=== PATIENT | male | born 1945 | race Caucasian/White ===

== ENCOUNTER → 2018-12-29 | Outpatient (CLI) | payer MEDICARE, OTHER ==
[~2018-12-29] MED LIST: ARICEPT5 MG PO; CYMBALTA30 MG PO; DOXAZOSIN MESYLA2 MG PO; GALANTAMINE PO; LEVAQUIN500 MG PO; LORATADINE10 MG PO; MONTELUKAST SOD10 MG PO; MUCINEX D TABL1 EAC1 PO; MYRBETRIQ50 MG PO; NAMENDA10 MG PO; ONDANSETRON PO; TYLENOL WITH C1 EACH PO; VITAMIN B-121000 MCG PO; Z.0.LOSARTAN POTASS2 PO; Z.0.OMEPRAZOLE20 MG PO; Z.0.SIMVASTATIN40 MG PO; Z.0.VITAMIN D3 1,01 PO; Z.0.ZOLPIDEM TART12. PO; [UNRECOGNIZED DRUG - OTHER]
--- NOTE | 2018-12-29 14:34 | Diagnostic Imaging Report ---
EXAM: Unilateral left lower leg soft tissue ultrasound INDICATION: ^[id number] ^1141 ^TRAUMATIC HEMATOMA OF LEFT LOWER LEG COMPARISON: None TECHNIQUE: Stein scale, color Doppler of the unilateral left lower extremity soft tissues was performed. FINDINGS: Sonographic evaluation of the left lower leg soft tissues in the area of palpable abnormality demonstrates an elongated complex fluid collection without internal vascularity consistent with hematoma. IMPRESSION: Left lower leg hematoma in the area of palpable abnormality. Signed by: Mohamud Diaz MD on 12/29/2018 2:30 PM
== END ==
LOC: US 11:02
PROVIDERS: ATTEND Family Medicine
DX: S80.12XA Contusion of left lower leg, initial encounter (principal); M79.89 Other specified soft tissue disorders; F03.90 Unspecified dementia, unspecified severity, without behavioral disturbance, psychotic disturbance, mood disturbance, and anxiety
CPT/HCPCS: 76882

== ENCOUNTER 2019-03-10 08:58 | Inpatient (IN) | payer OTHER ==
[2019-03-08 16:32] LABS: BASOPHILS % 0.5 % (0.0-1.0); EOSINOPHILS # (AUTO) 0.1 (0.0-0.4); EOSINOPHILS % 1.2 % (0.0-6.0); HEMATOCRIT 39.7 % (38.2-49.6); HEMOGLOBIN 12.9 g/dL (14.0-18.0); LYMPHOCYTES # (AUTO) 1.7 (1.0-3.2); LYMPHOCYTES % 29.9 % (18.0-39.1); MEAN CORPUSCULAR HEMOGLOBIN 29.9 pg (28-32); MEAN CORPUSCULAR HGB CONC 32.5 g/dL (31-35); MEAN CORPUSCULAR VOLUME 91.9 fL (81-99); MONOCYTES # (AUTO) 0.4 (0.2-0.8); MONOCYTES % 6.9 % (4.4-11.3); NEUTROPHILS # (AUTO) 3.5 (2.1-6.9); NEUTROPHILS % 61.2 % (38.7-80.0); PLATELET COUNT 198 x10e3/uL (140-360); RED BLOOD COUNT 4.32 x10e6/uL (4.3-5.7); RED CELL DISTRIBUTION WIDTH 12.5 % (11.7-14.4)
--- NOTE | 2019-03-08 17:07 | Diagnostic Imaging Report ---
EXAMINATION: CHEST 2 VIEWS INDICATION: Pre-operative COMPARISON: None FINDINGS: LINES/TUBES:None LUNGS:The lungs are well-inflated. No focal consolidation or pulmonary edema. PLEURA:No pleural effusion or pneumothorax. MEDIASTINUM:The cardiomediastinal silhouette appears normal in size and shape. BONES/SOFT TISSUES:No acute osseous injury. Degenerative changes of the visualized spine. ABDOMEN:No free air under the diaphragm. IMPRESSION: No focal pneumonia or pulmonary edema. Signed by: Mohamud Diaz MD on 03/08/2019 5:04 PM
[~2019-03-10] VITALS: Ht 182.9 cm; Wt 114.3 kg
[~2019-03-10 08:58] MED LIST changes: +ACETAMINOPHEN 1000 MG/100 ML 100 ML IV ONE; -LEVAQUIN500 MG PO; -TYLENOL WITH C1 EACH PO
--- OUTSIDE RECORDS SUMMARY | 2019-03-10 09:06 | XMS REPORT | Clinical Summary ---
Author Author [facility] Organization [facility] Address Unknown Phone Unavailable Care Team Providers Care Wellness Program Coordinator Name Role Phone Tato Albarran MD PCP Allergies No Known Allergies Medications End Date Status Medication Sig Dispensed Refills Start Date Active tamsulosin (FLOMAX) 0.4 Take 0.4 mg 0 mg capsule,extended by mouth release 24hr daily. Active simvastatin (ZOCOR) 40 MG Take 40 mg by 0 tablet mouth nightly. Active mirtazapine (REMERON) 15 Take 15 mg by 0 MG tablet mouth nightly. Active losartan (COZAAR) 25 MG TK 1 T PO QD 1 tablet 7 Active loratadine (CLARITIN) 10 Take 10 mg by 0 mg tablet mouth daily. Active Problems Problem Noted Date Obstructive sleep apnea 03/13/2017 Hearing loss 03/13/2017 Mixed hearing loss, bilateral 03/13/2017 Encounters Care Team Description Date Type Specialty Dc Renteria MD Normal pressure hydrocephalus (Primary Dx) 02/26/2019 Transcribe Access Orders Dc Renteria MD Subcortical infarction (HCC) (Primary Dx) 12/08/2018 Transcribe Access Orders after 03/09/2018 Social History Date Tobacco Use Types Packs/Day Years Used Never Smoker Drinks/Week oz/Week Comments Alcohol Use No Sex Assigned at Date Recorded Not on file Industry Job Start Date Occupation Not on file Not on file Not on file Travel End Travel History Travel Start No recent travel history available. 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
--- OUTSIDE RECORDS SUMMARY | 2019-03-10 09:06 | XMS REPORT ---
Author Author [facility] Address Unknown Phone Unavailable Care Team Providers Care Oncology Physician Assistant Name Role Phone TONNY WEN Unavailable Unavailable BERNARD BROOKS Unavailable Unavailable Problems This patient has no known problems. Allergies, Adverse Reactions, Alerts This patient has no known allergies or adverse reactions. Medications This patient has no known medications. Results Test Description Test Time Test Comments Text Results Atomic Results Result Comments CHEST 2 VIEWS 2019-03-08 17:03:00 [place] [address] Patient Name: AP DUMONT MR #: [id number] : 1945 Age/Sex: 74/M Req #: [id number] Adm Physician: Ordered by: TONNY WEN MD Report #: [id number] Location: OR Room/Bed: Procedure: [id number] DX/CHEST 2 VIEWS Exam Date: 03/08/19 Exam Time: 1643 REPORT STATUS: Signed EXAMINATION: CHEST 2 VIEWS INDICATION: Pre-operative COMPARISON: None FINDINGS: LINES/TUBES:None LUNGS:The lungs are well-inflated. No focal consolidation or pulmonary edema. PLEURA:No pleural effusion or pneumothorax. MEDIASTINUM:The cardiomediastinal silhouette appears normal in size and shape. BONES/SOFT TISSUES:No acute osseous injury. Degenerative changes of the visualized spine. ABDOMEN:No free air under the diaphragm. IMPRESSION: No focal pneumonia or pulmonary edema. Signed by: Andrés Oates MD on 03/08/2019 5:04 PM Dictated By: ANDRÉS OATES MD 03 Transcribed By: YANG on 03/08/191703 COPY TO: TONNY WEN MD US EXTREMITY DOUGLAS NON-VAS 2018-12-29 14:28:00 [place] [address] Patient Name: AP DUMONT MR #: [id number] : 1945 Age/Sex: 73/M Req #: [id number] Adm Physician: Ordered by: BERNARD BROOKS DO Report #: [id number] Location: Room/Bed: Procedure: [id number] US/US EXTREMITY DOUGLAS NON-VAS Exam Date: 12/29/18 Exam Time: 1141 REPORT STATUS: Signed EXAM: Unilateral left lower leg soft tissue ultrasound INDICATION: [id number] TRAUMATIC HEMATOMA OF LEFT LOWER LEG COMPARISON: None TECHNIQUE: Stein scale, color Doppler of the unilateral left lower extremity soft tissues was performed. FINDINGS: Sonographic evaluation of the left lower leg soft tissues in the area of palpable abnormality demonstrates an elongated complex fluid collection without internal vascularity consistent with hematoma. IMPRESSION: Left lower leg hematoma in the area of palpable abnormality. Signed by: Andrés Oates MD on 12/29/2018 2:30 PM Dictated By: ANDRÉS OATES MD 29 Transcribed By: YANG on 12/29/181429 COPY TO: BERNARD BROOKS DO
[2019-03-10] MEDS ORDERED: CEFTRIAXONE SOD 1 GM/NS 50 ML 50 ML IV ONE (09:15)
[2019-03-10] MEDS ORDERED: GENTAMICIN 80MG/NS 100 ML 200 ML IV ONE (09:15)
[2019-03-10] MEDS ORDERED: PROPOFOL IV EMULSION 10 MG/ML 20 ML VIAL ONE (11:01)
[2019-03-10] MEDS ORDERED: SEVOFLURANE INHAL SOLN 250 ML PEN BTL ONE (11:01)
[2019-03-10] MEDS ORDERED: ONDANSETRON HCL INJ 2MG/ML 2ML 2 MG/ML VIAL ONE (11:01)
[2019-03-10] MEDS ORDERED: LIDOCAINE HCL 2% LOCAL INJ 5 ML SDV VIAL INJ ONE (11:01)
[2019-03-10] MEDS ORDERED: ROCURONIUM BROMIDE 10 MG/ML 5ML VIAL ONE (11:01)
[2019-03-10] MEDS ORDERED: DEXAMETHASONE SOD PHOS INJ 4 MG/ML VIAL ONE (11:01)
[2019-03-10] MEDS ORDERED: B&O 60MG R/S 60 MG SUPP PR ONE (11:41)
[2019-03-10] MEDS ORDERED: IOPAMIDOL 610MG/1ML 300 MG/ML VIAL IV ONE (11:42)
[2019-03-10] MEDS ORDERED: ACETAMINOPHEN/CODEINE 300MG - 30MG TAB PO PRN (13:00)
[2019-03-10] MEDS ORDERED: DIPHENHYDRAMINE HCL 25 MG CAP PO PRN (13:00)
[2019-03-10] MEDS ORDERED: ONDANSETRON HCL INJ 2MG/ML 2ML 2 MG/ML VIAL IV PRN (13:00)
[2019-03-10] MEDS ORDERED: B&O 60MG R/S 60 MG SUPP PR PRN (13:00)
--- OUTSIDE RECORDS SUMMARY | 2019-03-10 13:27 | XMS REPORT | Clinical Summary ---
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
[2019-03-10 14:15] LABS: BASOPHILS % 0.5 % (0.0-1.0); EOSINOPHILS # (AUTO) 0.1 (0.0-0.4); EOSINOPHILS % 1.6 % (0.0-6.0); HEMATOCRIT 38.2 % (38.2-49.6); HEMOGLOBIN 12.2 g/dL (14.0-18.0); LYMPHOCYTES # (AUTO) 1.6 (1.0-3.2); LYMPHOCYTES % 27.9 % (18.0-39.1); MEAN CORPUSCULAR HEMOGLOBIN 29.8 pg (28-32); MEAN CORPUSCULAR HGB CONC 31.9 g/dL (31-35); MEAN CORPUSCULAR VOLUME 93.2 fL (81-99); MONOCYTES # (AUTO) 0.4 (0.2-0.8); NEUTROPHILS # (AUTO) 3.6 (2.1-6.9); NEUTROPHILS % 62.6 % (38.7-80.0); PLATELET COUNT 167 x10e3/uL (140-360); RED CELL DISTRIBUTION WIDTH 12.7 % (11.7-14.4)
[2019-03-10 14:30] LABS: ANION GAP 12.4 mmol/L (8-16); BLOOD UREA NITROGEN 13 mg/dL (7-26); BUN/CREATININE RATIO 14 (6-25); CALCIUM 8.9 mg/dL (8.4-10.2); CARBON DIOXIDE 26 mmol/L (22-29); CHLORIDE 107 mmol/L (98-107); CREATININE, SERUM 0.94 mg/dL (0.72-1.25); EST GLOMERULAR FILTRATION RATE > 60 ML/MIN (60-); GLUCOSE 106 mg/dL (74-118); POTASSIUM 4.4 mmol/L (3.5-5.1); SODIUM 141 mmol/L (136-145)
[2019-03-10] MEDS ORDERED: FENTANYL CITRATE/PF 100MCG/2 ML INJ ONE ×2 (14:31→14:45)
[2019-03-10] MEDS: PHENAZOPYRIDINE HCL 100 MG TAB PO SCH ×2 (17:43→17:45)
[2019-03-10] MEDS: D5.45%NS/KCL 20MEQ 1,000 ML IV SCH ×2 (17:43→20:59)
[2019-03-10] MEDS: CEFTRIAXONE SOD 1 GM/NS 50 ML 50 ML IV SCH (17:43)
[2019-03-10] MEDS: DOCUSATE SODIUM 100 MG CAP PO SCH (17:43)
[2019-03-10 18:00] VITALS: BP 132/76
[2019-03-10 18:42] VITALS: BP 145/83
--- NOTE | 2019-03-10 19:28 | NUR ---
WALKING ROUNDS PERFORMED, RECEIVED PT LAYING SEMI FOWLERS IN BED, AAOX3, RR EVEN AND NON-LABORED, ON ROOM AIR. NO S/SX OF DISTRESS NOTED. PT RECEIVING CBI AT THIS TIME. LEFT PT LAYING SEMI FOWLERS IN BED, BED IN LOW LOCKED POSITION, SIDE RAILS UPX2, CALL LIGHT AND PHONE WITHIN REACH.
[2019-03-10 20:00] VITALS: BP 149/79
[2019-03-10 21:02] VITALS: BP 149/79
--- NOTE | 2019-03-10 21:44 | NUR ---
PAGE PLACED FOR MD Oli AMBROSE CONCERNING HOME MEDICATIONS. WAITING FOR CALLBACK.
[2019-03-11] VITALS (8 sets, daily range): BP systolic 96–134; BP diastolic 59–70
--- NOTE | 2019-03-11 02:01 | NUR ---
PT URINE COLORED CHANGED FROM HEMATURIA PEREA TO BRIGHT ORANGE. WILL CONTINUE TO MONITOR.
[2019-03-11] MEDS: D5.45%NS/KCL 20MEQ 1,000 ML IV SCH ×3 (02:04→20:59)
[2019-03-11 06:17] LABS: BASOPHILS % 0.3 % (0.0-1.0); EOSINOPHILS # (AUTO) 0.1 (0.0-0.4); HEMOGLOBIN 12.8 g/dL (14.0-18.0); LYMPHOCYTES # (AUTO) 1.5 (1.0-3.2); LYMPHOCYTES % 16.5 % (18.0-39.1); MEAN CORPUSCULAR HEMOGLOBIN 30.1 pg (28-32); MEAN CORPUSCULAR HGB CONC 32.8 g/dL (31-35); MEAN CORPUSCULAR VOLUME 91.8 fL (81-99); MONOCYTES # (AUTO) 0.7 (0.2-0.8); MONOCYTES % 7.9 % (4.4-11.3); NEUTROPHILS # (AUTO) 6.8 (2.1-6.9); NEUTROPHILS % 73.9 % (38.7-80.0); PLATELET COUNT 190 x10e3/uL (140-360); RED BLOOD COUNT 4.25 x10e6/uL (4.3-5.7); RED CELL DISTRIBUTION WIDTH 12.7 % (11.7-14.4)
[2019-03-11 06:48] LABS: ANION GAP 11.5 mmol/L (8-16); BLOOD UREA NITROGEN 10 mg/dL (7-26); BUN/CREATININE RATIO 10 (6-25); CALCIUM 8.7 mg/dL (8.4-10.2); CARBON DIOXIDE 26 mmol/L (22-29); CHLORIDE 103 mmol/L (98-107); CREATININE, SERUM 0.96 mg/dL (0.72-1.25); EST GLOMERULAR FILTRATION RATE > 60 ML/MIN (60-); GLUCOSE 125 mg/dL (74-118); POTASSIUM 4.5 mmol/L (3.5-5.1); SODIUM 136 mmol/L (136-145)
[2019-03-11] MEDS: DOCUSATE SODIUM 100 MG CAP PO SCH ×2 (09:48→17:14)
[2019-03-11] MEDS: PHENAZOPYRIDINE HCL 100 MG TAB PO SCH ×3 (09:48→17:14)
[2019-03-11] MEDS: CEFTRIAXONE SOD 1 GM/NS 50 ML 50 ML IV SCH (17:14)
--- NOTE | 2019-03-11 19:00 | NUR ---
WALKING ROUNDS PERFORMED, RECEIVED PT LAYING SEMI FOWLERS IN BED, AAOX3, RR EVEN AND NON-LABORED, ON ROOM AIR. NO S/SX OF DISTRESS NOTED. PT RECEIVING CBI, BRIGHT ORANGE URINE NOTED TO MAHAJAN BEDSIDE BAG. LEFT PT LAYING SEMI FOWLERS IN BED, BED IN LOW LOCKED POSITION, SIDE RAILS UPX2, CALL LIGHT AND PHONE WITHIN REACH.
[2019-03-11] MEDS ORDERED: MONTELUKAST SODIUM 10 MG TAB PO SCH (21:00)
[2019-03-11] MEDS ORDERED: DOXAZOSIN MESYLATE 2 MG TAB PO SCH (21:00)
[2019-03-11] MEDS ORDERED: SIMVASTATIN 40 MG TAB PO SCH (21:00)
[2019-03-11] MEDS ORDERED: DONEPEZIL HCL 5 MG TAB PO SCH (21:00)
[2019-03-11] MEDS: MEMANTINE 10 MG TAB PO SCH (21:28)
[2019-03-12] MEDS: D5.45%NS/KCL 20MEQ 1,000 ML IV SCH (02:25)
[2019-03-12 06:40] LABS: BASOPHILS % 0.3 % (0.0-1.0); EOSINOPHILS # (AUTO) 0.1 (0.0-0.4); EOSINOPHILS % 0.9 % (0.0-6.0); HEMATOCRIT 39.8 % (38.2-49.6); LYMPHOCYTES # (AUTO) 1.6 (1.0-3.2); LYMPHOCYTES % 20.3 % (18.0-39.1); MEAN CORPUSCULAR HGB CONC 32.7 g/dL (31-35); MEAN CORPUSCULAR VOLUME 91.9 fL (81-99); MONOCYTES # (AUTO) 0.8 (0.2-0.8); MONOCYTES % 10.3 % (4.4-11.3); NEUTROPHILS # (AUTO) 5.3 (2.1-6.9); NEUTROPHILS % 67.8 % (38.7-80.0); PLATELET COUNT 184 x10e3/uL (140-360); RED BLOOD COUNT 4.33 x10e6/uL (4.3-5.7); RED CELL DISTRIBUTION WIDTH 12.7 % (11.7-14.4)
[2019-03-12 07:02] LABS: ANION GAP 10.1 mmol/L (8-16); BLOOD UREA NITROGEN 11 mg/dL (7-26); BUN/CREATININE RATIO 13 (6-25); CARBON DIOXIDE 27 mmol/L (22-29); CHLORIDE 104 mmol/L (98-107); CREATININE, SERUM 0.86 mg/dL (0.72-1.25); EST GLOMERULAR FILTRATION RATE > 60 ML/MIN (60-); GLUCOSE 118 mg/dL (74-118); POTASSIUM 4.1 mmol/L (3.5-5.1); SODIUM 137 mmol/L (136-145)
--- NOTE | 2019-03-12 07:04 | NUR ---
DOWNTIME DOCUMENTATION FILED IN PAPER CHART FOR ASSESSMENT, NURSES NOTES, AND VITALS SIGNS.
[2019-03-12 07:38] VITALS: BP 123/73
[2019-03-12 07:45] VITALS: BP 123/73
[2019-03-12] MEDS ORDERED: MEMANTINE 10 MG TAB PO SCH (09:00)
[2019-03-12] MEDS ORDERED: LOSARTAN POTASSIUM 25 MG TAB PO SCH (09:00)
[2019-03-12] MEDS ORDERED: NON-FORMULARY MEDICATION (Mirabegron (Myrbetriq) 50 MG) PO SCH (09:00)
[2019-03-12] MEDS ORDERED: DULOXETINE HCL 30 MG DELAYED RELEASE PO SCH (09:00)
[2019-03-12] MEDS ORDERED: CYANOCOBALAMIN 1,000 MCG TAB PO SCH (09:00)
[2019-03-12] MEDS ORDERED: [UNRECOGNIZED DRUG - REMARK] PO SCH (09:00)
--- NOTE | 2019-03-12 09:03 | NUR ---
jain catheter dc at this time . pt tolerated well. explained to pt and about serial urines needed prior to dc pt and fam verbalized understanding
[2019-03-12] MEDS: PHENAZOPYRIDINE HCL 100 MG TAB PO SCH (09:05)
[2019-03-12] MEDS: DOCUSATE SODIUM 100 MG CAP PO SCH (09:05)
[2019-03-12] MEDS: MEMANTINE 10 MG TAB PO SCH (09:05)
[2019-03-12] MEDS ORDERED: TYLENOL WITH C1 EACH PO (10:18)
[2019-03-12] MEDS ORDERED: LEVAQUIN500 MG PO (10:18)
--- NOTE | 2019-03-12 11:01 | NUR ---
PT HAD 5 CLEAR SERIAL URINES PT IS READY FOR DC CLEARED BY MD WEN AND MD Oral AMBROSE DISCHARGE INSTRUCTIONS AND PRESCRIPTIONS GIVEN PT VERBALIZED UNDERSTANDING IV DC PRESSURE DRESSING APPLIED AND TAPED
[2019-03-12 12:09] VITALS: BP 124/76
--- NOTE | 2019-03-12 12:58 | NUR ---
PT OFF UNIT TO HOME AT THIS TIME
--- NOTE | 2019-04-07 05:34 | Discharge Summary ---
CHIEF COMPLAINT: Increased urgency, nocturia. FINAL DIAGNOSES: Status post transurethral resection of the prostate, hypertension, benign prostatic hypertrophy. DISPOSITION: Home. He expires at a later time. The patient does have a disposition of going home. HOSPITAL COURSE: A 74-year-old male with known history of hypertension, hyperlipidemia, benign prostatic hypertrophy, underwent TURP, has a long history of increased urgency, nocturia, post-void dribbling. No other complaints. He does have history of renal cell carcinoma. He underwent review and evaluation in the emergency room. The patient does have a Pereira on-board. With evaluation, the patient admitted to facility regarding status post TURP, hypertension, hyperlipidemia, renal cell carcinoma by history. With admission, we will be addressing analgesics. Home medications will continue. The patient was on the Med-Surg floor, was on a regular diet, was started on ceftriaxone, was given IV fluids. Daily medications were continuing. Laboratory studies were being monitored. He was noted to continue to be resting comfortably. He was in no acute distress. He was having no new complaints. Pain was continued to be addressed as needed. The patient was responding well to care. Discharge planning was being discussed. Urine Pereira continued to be clear. The Pereira will be discontinued per Dr. Walker. The patient was cleared for discharge 03/12/2019, in stable condition. IMAGING: Chest x-ray shows no focal pneumonia or pulmonary edema. LABORATORY STUDIES: Reveals a CBC showing stable studies. Followup CBCs were stable as well. Chemistries, initial panel unremarkable. Glucose normal. Kidney functions normal. Followup chemistries remained normal. As mentioned, the patient responded well. The Pereira was able to be discontinued per Dr. Walker. He was cleared to be discharged home. The patient was released home in good condition. With discharge, the patient will continue on his current diet. No equipments or supplies are necessary. No drains or Pereira was needed. Activity level as directed by me as well as by Dr. Walker. CURRENT MEDICATIONS: The patient will continue on Tylenol with codeine No. 3 of 300 mg tablet one q.4 hours p.r.n. for pain, vitamin D3 of 1000 international units daily, vitamin B12 of 200 mcg p.o. daily, Aricept 5 mg p.o. at bedtime, doxazosin mesylate 2 mg p.o. at bedtime, Cymbalta 60 mg p.o. daily, Levaquin 500 mg p.o. daily for 7 days, losartan potassium 25 mg p.o. daily, Namenda 10 mg p.o. b.i.d., Myrbetriq 50 mg p.o. daily, montelukast sodium 10 mg daily, simvastatin 40 mg p.o. at bedtime. FOLLOWUP: He will be following up with his PCP in 7 to 10 days. If he has any questions concerns or recurrence of similar symptoms, he will be contacting his PCP. Dictated by SHEREEN Rogers Marco Rojas MD [facility]ON /[id number]
--- NOTE | 2019-04-20 06:35 | Operative Report ---
DATE OF PROCEDURE: 03/10/2019 SURGEON: Burt Walker MD PREOPERATIVE DIAGNOSES: 1. Obstructive benign prostatic hyperplasia. 2. Urinary tract infections. POSTOPERATIVE DIAGNOSES: 1. Obstructive benign prostatic hyperplasia. 2. Urinary tract infections. 3. 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 OPERATION PERFORMED: 1. Cystourethroscopy with dilation of open urethral stricture (separate procedure performed for the diagnosis of stricture). 2. Cystourethroscopy with bilateral ureteral catheterization and retrograde ureteropyelography (separate procedure performed for the urine tract infections). 3. Interpretation of retrograde ureteropyelography. 4. Supervision of fluoroscopy, no radiologist present. 5. Cystourethroscopy with transurethral resection of the prostate utilizing the plasma button electrode. ANESTHESIA: General. COMPLICATIONS: None. CLINICAL SUMMARY: William Mccann is a 74-year-old man with a history of kidney cancer. The patient has an overactive bladder, urinary tract infections, and obstructive BPH. He is brought for the above procedures. He is aware of the risks of bleeding, infection, injury to adjacent structures, incontinence, impotence, retrograde ejaculation, need for additional procedures and elected to proceed. OPERATIVE PROCEDURE IN DETAIL: Informed consent was verified. William Mccann was properly identified, taken to the operating room, placed on the cystoscopy table in supine position. Anesthesia was uneventfully begun. The patient was then carefully gently repositioned in dorsal lithotomy position with all pressure points well padded. His genitalia were prepared and draped in usual sterile fashion. The cystoscope sheath with the visual obturator in place was atraumatically inserted into the patient's urethra. It was guided unremarkable distal urethra to the bulbar region, where there was a short stricture noted just outside the external urinary sphincter. We gently dilated across the stricture to 22.5-Kenyan in size and then passed a normal sphincteric region, went through the prostate bed, which was significant for visually obstructing BPH. We entered the patient's bladder where panendoscopy revealed grade 2 trabeculations, but no tumors, no stones, and no true diverticula. Normally positioned and configured ureteral orifices were identified. There were no suspicious lesions. An 8-Kenyan catheter was used to cannulate each ureter and retrograde ureteropyelograms were performed. Interpretation of retrograde ureteropyelography contrast was instilled in retrograde fashion bilaterally. There were no tumors. There were no stones. There were no suspicious lesions. There were no filling defects. There was no hydronephrosis. Unobstructed drainage was observed bilaterally fluoroscopically, some J-hooking was noted. Hemoclips were noted in the left upper quadrant from the patient's previous partial nephrectomy. The cystoscope was withdrawn. We further dilated with Sandra sounds to the urethra to 28-Kenyan in size. We then gently placed and atraumatically placed the resectoscope sheath into the patient's bladder and proceeded to perform transurethral resection of the prostate. The plasma button electrode was utilized to vaporize prostatic tissue from the bladder neck tube, but never passed the verumontanum and down the surgical capsule. Pinpoint electrocautery was utilized to achieve hemostasis. The resectoscope was withdrawn. Pereira catheter was placed. It was irrigated to and fro to ensure it worked properly. The patient was started on continuous bladder irrigation. A belladonna and opium suppository were placed revealing a smooth large prostate and functional without any nodules. The patient was uneventfully reversed from anesthesia and taken to recovery room in stable condition. There were no complications of the procedure. The patient tolerated the procedure well. Estimated blood loss was minimal. Expressive postop instructions were given and we will proceed with routine postoperative care following discharge. The patient will follow up in approximately 1 month for uroflowmetry and bladder ultrasonography. Burt Walker MD [facility]/MODL /[id number] cc: David Skinner DO
== END 2019-03-12 12:46 | disposition home or self-care (01) | DRG 713 ==
LOC: OR 08:58 → PACU V 13:23 → MED/SURG 16:25
PROC: 0T788ZZ Dilation of Bilateral Ureters, Via Natural or Artificial Opening Endoscopic (ICD-10-PCS; 2019-03-10)
PROC: BT141ZZ Fluoroscopy of Kidneys, Ureters and Bladder using Low Osmolar Contrast (ICD-10-PCS; 2019-03-10)
PROC: 0VB08ZZ Excision of Prostate, Via Natural or Artificial Opening Endoscopic (ICD-10-PCS; principal; 2019-03-10 10:30)
PROC: 0T7D8ZZ Dilation of Urethra, Via Natural or Artificial Opening Endoscopic (ICD-10-PCS; 2019-03-10 10:30)
DX: N40.1 Benign prostatic hyperplasia with lower urinary tract symptoms (principal); N13.8 Other obstructive and reflux uropathy; C64.9 Malignant neoplasm of unspecified kidney, except renal pelvis; I10 Essential (primary) hypertension; R39.15 Urgency of urination; R35.1 Nocturia; E78.00 Pure hypercholesterolemia, unspecified; K21.9 Gastro-esophageal reflux disease without esophagitis; G47.33 Obstructive sleep apnea (adult) (pediatric); N32.81 Overactive bladder
CPT/HCPCS: 36415; 71046; 74420; 80048; 83735; 85025; 93005; 96361; C1758; J0696; J1100; J1580; J2001; J2405; J3010

== ENCOUNTER → 2020-01-18 | Outpatient (CLI) | payer OTHER ==
[~2020-01-18] MED LIST changes: -ACETAMINOPHEN 1000 MG/100 ML 100 ML IV ONE; +LEVAQUIN500 MG PO; +TYLENOL WITH C1 EACH PO
--- NOTE | 2020-01-18 14:51 | Diagnostic Imaging Report ---
EXAMINATION: CHEST 2 VIEWS INDICATION: Renal neoplasm COMPARISON: Chest radiograph 03/08/2019 FINDINGS: LINES/TUBES:None LUNGS:The lungs are well-inflated. No focal consolidation or pulmonary edema. PLEURA:No pleural effusion or pneumothorax. MEDIASTINUM:The cardiomediastinal silhouette appears normal in size and shape. BONES/SOFT TISSUES:No acute osseous injury. ABDOMEN:No free air under the diaphragm. IMPRESSION: No focal pneumonia or pulmonary edema. No radiographically apparent pulmonary nodule. Signed by: Mohamud Diaz MD on 01/18/2020 2:48 PM
--- NOTE | 2020-01-18 14:53 | Diagnostic Imaging Report ---
EXAM: Renal Ultrasound INDICATION: ^MALIGNANT NEOPLASM OF LEFT KIDNEY COMPARISON: None TECHNIQUE: Transverse and longitudinal images of the kidneys and bladder were obtained. FINDINGS: Right Kidney: Length: 11.3 cm Appearance: Normal echogenicity. Collecting system: No hydronephrosis Stones: None Cyst/Mass: Lower pole 1.4 cm anechoic simple cyst. Left Kidney: Reported history of left partial nephrectomy. Length: 12.1 cm Appearance: Normal echogenicity. Collecting system: No hydronephrosis Stones: None Cyst/Mass: None Bladder: No mass or calculi. Right ureteral jet visualized. Prevoid volume estimate 198 cc. Prostate not optimally visualized due to bowel gas. Reported history of TURP. IMPRESSION: Reported history of left partial nephrectomy and TURP. No hydronephrosis or renal calculi. Right lower pole simple cyst. Signed by: Mohamud Diaz MD on 01/18/2020 2:50 PM
== END ==
LOC: US 13:42
PROVIDERS: ATTEND Urology
DX: C64.2 Malignant neoplasm of left kidney, except renal pelvis (principal)
CPT/HCPCS: 71046; 76770

== ENCOUNTER → 2021-08-06 | Outpatient (CLI) | payer MEDICARE | LOC: US 12:58 | PROVIDERS: ATTEND Urology | DX: C64.1 Malignant neoplasm of right kidney, except renal pelvis (principal) | CPT/HCPCS: 71046; 76770 ==